=== PATIENT | male | born 1945 | race Caucasian/White ===

== ENCOUNTER 2016-04-01 12:26 | Inpatient (IN) | payer MEDICARE ==
[~2016-04-01] VITALS: Ht 167.6 cm; Wt 86.3 kg
[2016-04-07] MEDS ORDERED: PRAS10TA PO (09:45)
[2016-04-07] MEDS ORDERED: DHEA50CA PO (09:45)
[2016-04-07] MEDS ORDERED: CENTTAB PO (09:45)
[2016-04-07] MEDS ORDERED: TRAM50TA PO (09:45)
[2016-04-07] MEDS ORDERED: ASPI1TAB69 PO (09:45)
[2016-04-07] MEDS ORDERED: LIPI10TA PO (09:45)
[2016-04-07] MEDS ORDERED: ZOLO50TA PO (09:45)
[2016-04-07] MEDS ORDERED: CHRO400T5 PO (10:11)
[2016-04-12 05:57] VITALS: BP 145/87; PULSE 64; RESP 16; TEMP 97; O2SAT 96
[2016-04-12] MEDS ORDERED: LACTATED RINGER'S 1000 ML IV SCH (06:15)
[2016-04-12] MEDS ORDERED: INSULIN HUMAN REGULAR 1,000 UNITS/10 ML VIAL SQ PRN (06:15)
[2016-04-12] MEDS ORDERED: METOPROLOL TARTRATE 25 MG TAB PO PRN (06:15)
[2016-04-12] MEDS ORDERED: SODIUM CHLORIDE 0.9% IV SCH (06:15)
[2016-04-12] MEDS ORDERED: EXPAREL PERI-ARTICULAR INJECTION (TOTAL VOL. 60 ML) P-ARTICULR SCH ×2 (06:15)
[2016-04-12] MEDS ORDERED: SODIUM CHLORID 0.9% 500 ML IV SCH (06:15)
[2016-04-12] MEDS ORDERED: VANCOMYCIN 1000 MG/NS 250 ML (for <70 kg) IV SCH ×2 (06:15)
[2016-04-12] MEDS ORDERED: TRANEXAMIC ACID IV SCH (06:15)
[2016-04-12] MEDS ORDERED: MIDAZOLAM HCL 2 MG/2 ML VIAL ONE (06:49)
[2016-04-12] MEDS ORDERED: ACETAMINOPHEN 1000 MG/100 ML VIAL IV ONE (07:13)
[2016-04-12] MEDS ORDERED: HYDROmorphone HCL PF 2 MG/ML VIAL ONE (07:13)
[2016-04-12] MEDS ORDERED: GENTAMICIN SULFATE 80 MG/2 ML VIAL IRRIGATION ONE (08:20)
--- NOTE | 2016-04-12 09:00 | MH ---
cc: CORWIN GERMAN DATE OF ADMISSION: 04/12/2016 ADMITTING DIAGNOSIS: Osteoarthritis of the left knee. HISTORY OF PRESENT ILLNESS: This patient is a 71 year-old male with significant left knee pain. Investigative study shows evidence of extensive arthritis, left knee. Despite conservative care including injections, altered activity, medications, physical therapy, etc., the patient continues to be painful and now presents for surgical treatment. PAST MEDICAL HISTORY: See attached notes. SOCIAL HISTORY, FAMILY HISTORY, AND REVIEW OF SYSTEMS: See attached notes. PHYSICAL EXAMINATION: GENERAL: The patient is a 71 year-old male in moderate distress with his left knee. HEENT: Normocephalic, atraumatic. Pupils equal, round, reactive to light and accommodation. Extraocular motions intact. NECK: Supple. CHEST: Clear. HEART: Regular rate and rhythm. ABDOMEN: Soft, nontender, normoactive bowel sounds. MUSCULOSKELETAL EXAMINATION: Left knee, pain with range of motion, especially with varus and valgus stress. Crepitus with range of motion. Neurologic and vascular examination is within normal limits. IMPRESSION: Osteoarthritis, left knee. PLAN: Left total knee replacement arthroplasty. CONSENT: There are risks with surgery including infection, bleeding, loss of motion, continued pain, need for further surgery, neurologic or vascular injury, etc. The patient understands these issues and wishes to press on with surgery as outlined above. Corwin German MD [facility]/[place] /10:50 PM /8:57 AM
[2016-04-12] MEDS ORDERED: SODIUM CHLORIDE 0.9% FLUSH 5 ML FLUSH IVF PRN (09:30)
[2016-04-12] MEDS ORDERED: MORPHINE SULFATE 8 MG/ML INJ IV PUSH PRN (09:30)
[2016-04-12] MEDS ORDERED: MISCELLANEOUS NURSING INFORMATION XX PRN (09:30)
[2016-04-12] MEDS ORDERED: TEMAZEPAM 15 MG CAP PO PRN (09:30)
[2016-04-12] MEDS ORDERED: MAGNESIUM HYDROXIDE SUSP 30 ML CUP PO PRN (09:30)
[2016-04-12] MEDS ORDERED: ONDANSETRON HCL 4 MG/2 ML VIAL IVP PRN (09:30)
[2016-04-12] MEDS ORDERED: ALUMINUM/MAGNESIUM/SIMETH 30 ML CUP PO PRN (09:30)
[2016-04-12] MEDS ORDERED: Post-op Orders (for Pharmacy) MISC XX ONE (09:30)
[2016-04-12] MEDS ORDERED: NALOXONE HCL 0.4 MG/ML AMP IV PRN (09:30)
[2016-04-12] MEDS ORDERED: ACETAMINOPHEN/HYDROcodone 325 MG/10 MG TAB PO PRN (09:30)
[2016-04-12] MEDS ORDERED: BISACODYL 10 MG SUPP PR PRN (09:30)
--- NOTE | 2016-04-12 09:33 | PD.OP ---
cc: Samson Morales MD Operative Report Date of Surgery: Apr 12, 2016 Preoperative Diagnosis: Osteoarthritis left knee Postoperative Diagnosis: Same Procedure: Left total knee replacement arthroplasty, posterior stabilized Anesthesia: Gen. with block Surgeon: Samson Morales Rifle Case Repairer(s): TIM Alexandra Operation and Findings: EBL: 100 mL INDICATION: This patient presents with long-standing arthritis of the knee. Attachment record documents conservative measures. Because measures include injection of cortisone, NSAIDs, injections of Synvisc and other viscoelastic supplements, use of cane, physical therapy. He has failed all avenues of conservative care. The patient now presents for surgical treatment. NOTE: Leigh Alexandra PA-C was present for the entire surgical procedure as my cutting table operator first. In my medical opinion her skill and care was necessary for proper management of this patient. TOURNIQUET TIME: 54 minutes COMPANY: [employer] FEMUR: Size 3, posterior stabilized TIBIA: Size 3, fixed bearing PATELLA: 35 mm POLYETHYLENE INSERT: 9 mm PROCEDURE: This patient was brought the operating room and anesthetized in the supine position. The patient was positioned supine on the table. The tourniquet was placed about the thigh, and the leg was scrubbed with alcohol followed by Hibiclens followed by ChloraPrep and draped sterilely. A timeout was done, and antibiotics were given. After exsanguination the tourniquet was inflated to 250 mmHg. An anterior incision was made and a median parapatellar arthrotomy was performed. The patella was released laterally and subluxed allowing freehand cut of the patella which was then sized. A metal cap was placed over the exposed patellar surface for protection. A ems helicopter pilot hole was placed in the distal femur allowing a 7 valgus cut removing 10 mm from the distal femur. Anterior posterior and chamfer cuts were made. The posterior stabilize osteotomy was made. The attention was directed to the tibia. Retractors were positioned. The external alignment guide was used allowing the lateral tibia were used as referencing guide and cut. This is sized properly. Trial reduction showed that the insert fit nicely. The patient had range of motion extension 0 flexion 125. A medial release was not necessary. The bony surfaces prepared. On the back table 2 packets of methylmethacrylate were mixed. The components were cemented. Excess cement was removed. The tourniquet let down and hemostasis was controlled. The final plastic insert was inserted. Range of motion was the same as previously noted. A drain was brought through a separate stab incision. The arthrotomy was repaired with interrupted #1 Vicryl suture, subcutaneous tissue 2-0 Vicryl suture and skin with metallic ronal A sterile dressing was applied. Sponge counts, needle counts and instrument counts were all correct. The patient tolerated procedure well and was taken to recovery in satisfactory condition. FINDINGS: Severe osteoarthritis of the medial compartment with bone loss and varus deformity. Mild arthritis in the lateral compartment and retropatellar compartment. Overall fit was excellent. No comp location was appreciated we used local anesthesia for a additional local block Samson Morales MD Apr 12, 2016 09:33
[2016-04-12] MEDS ORDERED: XARE10TA PO (09:38)
[2016-04-12] MEDS ORDERED: HYDR-3583 PO (09:38)
[2016-04-12] MEDS ORDERED: fentaNYL CITRATE 250 MCG/5 ML AMP ONE (09:44)
[2016-04-12] MEDS: *morphine SULFATE 8 MG/ML PERIprocedure ONLY ONE ×3 (10:00→10:17)
[2016-04-12] MEDS: LACTATED RINGER'S 1000 ML INJ 1,000 ML IV SCH ×2 (10:00→20:06)
[2016-04-12] MEDS ORDERED: DO NOT ADM ANY ANTICOAGULANT DRUGS XX PRN (10:00)
[2016-04-12] MEDS ORDERED: NEOSTIGMINE 3 MG/3 ML SYR IV ONE (10:04)
[2016-04-12] MEDS ORDERED: ONDANSETRON HCL 4 MG/2 ML VIAL IV PUSH ONE (10:04)
[2016-04-12] MEDS ORDERED: WALKER WHEELS/F1 MIS (10:04)
[2016-04-12] MEDS ORDERED: ePHEDrine/NS 50 MG/5 ML SYR IV ONE (10:04)
[2016-04-12] MEDS ORDERED: PROPOFOL 200 MG/20 ML AMP IV ONE (10:04)
[2016-04-12] MEDS ORDERED: CPMMACHINE (10:06)
--- NOTE | 2016-04-12 10:08 | HHI.FF ---
Face to Face Verification Diagnosis: (1) Left knee pain (2) Osteoarthritis of left knee Physical Therapy Gait training, Safety evaluation, Transfer training, bed to chair Knee: Total knee, Protocol: Left, Full weight bearing Canvas Knee Splint: When in bed & 2 pillows btw thighs Additional Instructions PT 5 days/wk for 2 weeks. WBAT LLE. TKA protocol. CPM bid as tolerated, 0-70 w goal of 100 flexion. Walker to assist w gait. CKS in bed for 2-3 weeks postop Nursing RN Days per Week: 3 x Week(s): 1 Dressing Changes: Do not change dressing Additional Instructions Vitals assessment. Dressing assessment - do not change unless saturated or erythema. I have seen patient Portillo Alvarez Omar, on 04/12/16. My clinical findings support the need for the requested home health care services because: Limited ability to care for self High risk of falls I certify that my clinical findings support that this patient is homebound because: Post-op weakness Unsteady gait/balance Leigh Alexandra Apr 12, 2016 10:08
--- NOTE | 2016-04-12 10:15 | HHI.DS ---
Discharge Summary Admission Date Apr 12, 2016 at 05:42 Discharge Date: Apr 14, 2016 Admitting Diagnosis see below Diagnosis: (1) Left knee pain Diagnosis: Principal (2) Osteoarthritis of left knee Diagnosis: Principal Procedures Left total knee arthroplasty Brief History This is a 71 year old male patient with a long history of left knee pain. When he began struggling walking short distances he sought out medical treatment. Imaging studies were performed showing significant medial knee arthritis. Conservative measures were pursued including medications and injections. He continued to decline so surgical treatment was recommended and he elected to move forward. Hospital Course Surgical treatment was performed on the day of admission without complication. He recovered well in PACU and was transferred to the orthopaedic floor. Pain was controlled with IV and oral medications. DVT prophylaxis was initiated pod# 1. He was compliant with physical therapy and all TKA precautions. After 2 days he was found to be stable and discharged home with home health care with instruction to continue his therapy and to pursue a high fiber diet. Pt Condition on Discharge: Stable Discharge Disposition: Disch w/ Home Health Serv Discharge Instructions Diet Instructions: As Tolerated, No Restrictions, High Fiber Diet Activities You Can Perform: Weight Bearing as Mo Additional Activity Instruc.: TKA precautions New Medications: CPM-Continuous Passive Motion Machine (CPM-Continuous Passive Motion Machine) 1 Ea Device 1 EA .ROUTE DIRECTED #1 Ref 0 EA Walker with Front Wheels (Walker with Front Wheels) 1 Mis Mis 1 EA .ROUTE DIRECTED #1 Ref 0 EA Hydrocodone-Acetaminophen (Hydrocodone-Acetaminophen) 10-325 mg Tab 1 TAB PO Q4H PRN PAIN LESS THAN 5 ON SCALE #50 TAB Rivaroxaban (Xarelto) 10 Mg Tab 10 MG PO Q24H Prevent Blood Clot #15 TAB Continued Medications: Aspirin (Aspirin) 81 Mg Tabdr 81 MG PO DAILY TAB Atorvastatin (Lipitor) 10 Mg Tab 10 MG PO HS Cholesterol Management #30 Ref 0 TAB Chromium (Chromium) 400 Mcg Tab 800 MG PO DAILY Multiple Vitamins W/ Minerals (Centrum Silver) 1 Tab 1 TAB PO DAILY Nutritional Supplement Ref 0 TAB Prasterone (Dhea) 50 Mg Cap MG PO DAILY Prasugrel (Effient) 10 Mg Tab 10 MG PO DAILY Blood Clot Prevention #30 Ref 0 TAB Sertraline (Zoloft) 50 Mg Tab 50 MG PO DAILY #30 Ref 0 TAB Tramadol (Tramadol) 50 Mg Tab 50 MG PO Q6H PRN PAIN Ref 0 TAB Leigh Alexandra Apr 12, 2016 10:15
[2016-04-12] MEDS: MORPHINE SULFATE 30 MG/30 ML PCA IV SCH ×2 (10:29→16:22)
--- NOTE | 2016-04-12 10:33 | RADRPT ---
EXAM DATE/TIME: 04/12/2016 10:08 [facility] COMPARISON: No previous studies available for comparison. INDICATIONS : Post op left knee surgery. MEDICAL HISTORY : None. SURGICAL HISTORY : None. ENCOUNTER: Initial ACUITY: 1 day PAIN SCORE: 5/10 LOCATION: Left knee FINDINGS: Two view examination of the left knee demonstrates left-sided total knee joint replacement. Drain in the soft tissues. Skin ronal anteriorly. CONCLUSION: 1. Postoperative left total knee joint replacement. No complications identified. Hector Roth MD on April 12, 2016 at 10:31 Board Certified Radiologist. This report was verified electronically.
[2016-04-12] MEDS: *HYDROmorphone PF 1 MG VIAL PERIprocedural Use ONLY ONE (10:37)
[2016-04-12] MEDS ORDERED: BUPIVACAINE HCL PF 0.5% 30 ML VIAL NB ONE (11:59)
[2016-04-12 12:00] VITALS: BP 134/73; PULSE 102; RESP 18; TEMP 97.3; O2SAT 95
[2016-04-12] MEDS: PCA - TOTAL MG MORPHINE DELIVERED PER SHIFT SCH ×2 (13:59→20:06)
[2016-04-12 16:00] VITALS: BP 115/74; PULSE 92; RESP 18; TEMP 97.8; O2SAT 95
[2016-04-12 16:32] VITALS: O2SAT 98
[2016-04-12 20:00] VITALS: BP 130/74; PULSE 82; RESP 16; TEMP 96.4; O2SAT 94
[2016-04-12] MEDS: ATORVASTATIN 10 MG TAB PO SCH (20:01)
[2016-04-12] MEDS: SODIUM CHLORIDE 0.9% FLUSH 5 ML FLUSH IVF SCH (20:02)
--- NOTE | 2016-04-12 23:41 | EKG ---
Date Performed: 04/12/2016 Time Performed: 06:18:02 PTAGE: 71 years EKG: Sinus rhythm WITH OCCASIONAL ECTOPIC PREMATURE COMPLEXES NONSPECIFIC T-WAVE ABNORMALITY BORDERLINE ECG NO PREVIOUS TRACING DOCTOR: Rosy Dodge Interpretating Date/Time 04/12/2016 23:39:27
[2016-04-13] VITALS (7 sets, daily range): BP systolic 126–147; BP diastolic 65–78; PULSE 83–94; RESP 16–20; TEMP 95.4–99.8; O2SAT 92–97
[2016-04-13] MEDS: PCA - TOTAL MG MORPHINE DELIVERED PER SHIFT SCH ×2 (04:39→12:14)
[2016-04-13] MEDS: POVIDONE IODINE 7.5% SCRUB 118 ML BOTTLE TOP SCH (04:39)
[2016-04-13 08:13] LABS: HEMATOCRIT 38.9 % (39.0-51.0); REVIEW FLAG FINAL
[2016-04-13] MEDS: RIVAROXABAN 10 MG TAB PO SCH (08:21)
[2016-04-13] MEDS: SERTRALINE HCL 50 MG TAB PO SCH (08:21)
[2016-04-13] MEDS: SODIUM CHLORIDE 0.9% FLUSH 5 ML FLUSH IVF SCH ×2 (08:21→20:55)
[2016-04-13] MEDS ORDERED: PRASUGREL 10 MG TAB PO SCH (09:00)
[2016-04-13] MEDS ORDERED: CHROMIUM PO SCH (09:00)
[2016-04-13] MEDS: LACTATED RINGER'S 1000 ML INJ 1,000 ML IV SCH ×2 (10:17→20:55)
[2016-04-13] MEDS: ACETAMINOPHEN/HYDROcodone 325 MG/10 MG TAB PO PRN ×2 (11:58→18:14)
--- NOTE | 2016-04-13 12:34 | PD.ORT.PN ---
Subjective Subjective Remarks Moderate left knee pain. has history of restless leg syndrome so some aching both legs. No complaints overnight such as CP, SOB, fever. Urinating but no BM. Objective Vitals Vital Signs Date Time Temp Pulse Resp B/P Pulse Ox O2 Delivery O2 Flow Rate FiO2 04/13/16 08:15 Room Air 04/13/16 08:00 95.4 90 20 140/72 94 04/13/16 04:00 96.8 87 16 133/73 93 04/13/16 00:54 97 Nasal Cannula 2.00 04/13/16 00:00 97.2 87 17 126/65 93 04/12/16 20:00 96.4 82 16 130/74 94 04/12/16 16:32 98 Nasal Cannula 2.00 04/12/16 16:00 97.8 92 18 115/74 95 I/O 04/12/16 04/12/16 04/12/16 04/13/16 04/13/16 04/13/16 07:00 15:00 23:00 07:00 15:00 23:00 Intake Total 2351 ml 793 ml 1121 ml 569 ml Output Total 580 ml 1140 ml 1050 ml 800 ml Balance 1771 ml -347 ml 71 ml -231 ml Intake Oral 240 ml 360 ml 360 ml IV Total 811 ml 433 ml 761 ml 569 ml Other 1300 ml Output Urine Total 500 ml 850 ml 850 ml 800 ml Drainage Total 30 ml 290 ml 200 ml Estimated Blood Loss 50 ml # Bowel Movements 0 0 Result Diagram: 04/13/16 0641 Procedures Left total knee arthroplasty Objective Remarks Sitting up in chair, at bedside, NAD LLE Dressing c/d/i, drain in place with 200cc, no erythema, moderate warmth thigh and calf supple, neg homans +motor at, +sens, +nvi Assessment & Plan Ortho Post Op Day #: 1 Problem List: (1) Left knee pain (2) Osteoarthritis of left knee Assessment and Plan pod#1 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 Ok to decrease settings on SCDs to alleviate some cramping left leg. Xarelto 10mg qd. Will likely restart Effient in 48 hours. Continue drain until tomorrow am then d/c. Hold dressing changes unless saturated. PT - WBAT LLE. TKA protocol. CPM D/C planning, [facility] tomorrow or monday. F2F written. Leigh Alexandra Apr 13, 2016 12:34
[2016-04-13] MEDS: DOCUSATE SODIUM 100 MG CAP PO SCH (20:48)
[2016-04-13] MEDS: MULTIVITAMINS/MINERALS THERAPEUTIC TAB PO SCH (20:49)
[2016-04-13] MEDS: ATORVASTATIN 10 MG TAB PO SCH (20:49)
[2016-04-14 00:12] VITALS: BP 151/71; PULSE 85; RESP 20; TEMP 98.8; O2SAT 94
[2016-04-14] MEDS: POVIDONE IODINE 7.5% SCRUB 118 ML BOTTLE TOP SCH (03:44)
[2016-04-14] MEDS: ACETAMINOPHEN/HYDROcodone 325 MG/10 MG TAB PO PRN ×2 (05:40→11:41)
--- NOTE | 2016-04-14 07:39 | HHI.DCPOC ---
Discharge Care Plan Diagnosis: (1) Left knee pain (2) Osteoarthritis of left knee Your Health Problems Are: Incision/Drains Goals to Promote Your Health * To prevent worsening of your condition and complications * To maintain your health at the optimal level Directions to Meet Your Goals Take your medications as prescribed Follow your dietary instruction Follow activity as directed Keep your appointments as scheduled Take your immunizations and boosters as scheduled If your symptoms worsen call your PCP, if no PCP go to Urgent Care Center or Emergency Room Smoking is Dangerous to Your Health. Avoid second hand smoke Call the 24-hour hour crisis hotline for domestic abuse at Leigh Alexandra Apr 14, 2016 07:39
--- NOTE | 2016-04-14 07:44 | PD.ORT.PN ---
Subjective Subjective Remarks Moderate left knee pain but improved today compared to yesterday. Struggling with hiccups this morning. No BM yet but is actively passing gas. Continues to urinate well. Good appetite. No new complaints overnight such as CP, SOB, fever. Considering D/C home today. Objective Vitals Vital Signs Date Time Temp Pulse Resp B/P Pulse Ox O2 Delivery O2 Flow Rate FiO2 04/14/16 00:12 98.8 85 20 151/71 94 04/13/16 20:25 99.8 93 20 144/77 92 04/13/16 18:16 Nasal Cannula 2.00 04/13/16 16:00 97.9 83 20 147/77 94 04/13/16 12:00 97.1 94 20 133/78 94 04/13/16 08:15 Room Air 04/13/16 08:00 95.4 90 20 140/72 94 I/O 04/13/16 04/13/16 04/13/16 04/14/16 04/14/16 04/14/16 07:00 15:00 23:00 07:00 15:00 23:00 Intake Total 1121 ml 1049 ml 480 ml 480 ml Output Total 1050 ml 1165 ml 65 ml 750 ml Balance 71 ml -116 ml 415 ml -270 ml Intake Oral 360 ml 480 ml 480 ml 480 ml IV Total 761 ml 569 ml Output Urine Total 850 ml 1035 ml 750 ml Drainage Total 200 ml 130 ml 65 ml # Voids 3 4 # Bowel Movements 0 0 0 Result Diagram: 04/13/16 0641 Procedures Left total knee arthroplasty Objective Remarks Sitting up in bed, VSS, NAD LLE Dressing c/d/i, drain removed and site clean w moderate SS drainage at bandage lateral, no erythema, mild swelling, thigh and calf supple, neg homans +motor at, +sens, +nvi Assessment & Plan Ortho Post Op Day #: 2 Problem List: (1) Left knee pain (2) Osteoarthritis of left knee Assessment and Plan pod#2 s/p L TKA Did better last night. Considering d/c home today. If he does well w PT this afternoon, okay to d/c home w [facility] this afternoon. Leg cramping better after SCDs adjusted. Colace for BM today. Xarelto 10mg qd. Plan on returning to Effient tomorrow. Hold dressing changes unless saturated. PT - WBAT LLE. TKA protocol. CPM F/U in 2 weeks as scheduled. F2F written. Leigh Alexandra Apr 14, 2016 07:44
[2016-04-14] MEDS: MULTIVITAMINS/MINERALS THERAPEUTIC TAB PO SCH (07:51)
[2016-04-14] MEDS: SERTRALINE HCL 50 MG TAB PO SCH (07:51)
[2016-04-14] MEDS: RIVAROXABAN 10 MG TAB PO SCH (07:51)
[2016-04-14] MEDS: DOCUSATE SODIUM 100 MG CAP PO SCH (07:52)
[2016-04-14] MEDS: SODIUM CHLORIDE 0.9% FLUSH 5 ML FLUSH IVF SCH (07:52)
[2016-04-14 08:00] VITALS: BP 149/78; PULSE 76; RESP 20; TEMP 96.2; O2SAT 96
[2016-04-14] MEDS ORDERED: PRASUGREL 10 MG TAB PO SCH (09:00)
[2016-04-14] MEDS: LACTATED RINGER'S 1000 ML INJ 1,000 ML IV SCH (11:23)
== END 2016-04-14 13:19 | disposition home health service (06) | DRG 470 ==
LOC: HSDI 04-12 05:42 → N06A 04-12 12:09
PROVIDERS: ADMIT Orthopaedic Surgery Orthopaedic Surgery of the Spine; ATTEND Orthopaedic Surgery Orthopaedic Surgery of the Spine
PROC: 3E0T3CZ (ICD-10-PCS; 2016-04-12)
PROC: 0SRD0J9 Replacement of Left Knee Joint with Synthetic Substitute, Cemented, Open Approach (ICD-10-PCS; principal; 2016-04-12 07:19)
DX: M17.12 Unilateral primary osteoarthritis, left knee (principal); G25.81 Restless legs syndrome; R06.6 Hiccough
CPT/HCPCS: 73560; 85014; 85018; 86850; 86900; 86901; 86920; 93005; 94150; C1776; C9290; J0131; J0690; J1170; J1580; J2250; J2270; J2405; J2710; J3010; J3370; J7050; J7120; L1830

== ENCOUNTER 2016-08-08 12:39 | Inpatient (IN) | payer MEDICARE, OTHER ==
[~2016-08-08] VITALS: Ht 167.6 cm; Wt 120.9 kg
[~2016-08-08 12:39] MED LIST: ASPI1TAB69 PO; CENTTAB PO; CHRO400T5 PO; DHEA50CA PO; LIPI10TA PO; PRAS10TA PO; ZOLO50TA PO
[2016-08-08] MEDS ORDERED: OMEP20TA PO (13:43)
--- NOTE | 2016-08-08 19:27 | MH ---
cc: CORWIN GERMAN DATE OF ADMISSION 08/09/2016 ADMISSION DIAGNOSIS Osteoarthritis of the right knee. HISTORY OF THE PRESENT ILLNESS This patient is a 71-year-old male who is approximately 4 months status post left total knee replacement arthroplasty. He has done very well. The patient had bilateral severe osteoarthritis. The patient had conservative care of his right knee including injections of cortisone, pain medications, use of nonsteroidal anti-inflammatory medications and use of a cane. He has had physical therapy for both of his knees. He is now for months after left total knee replacement and presents now for staged right total knee replacement arthroplasty. PAST MEDICAL HISTORY, SOCIAL HISTORY, FAMILY HISTORY AND REVIEW OF SYMPTOMS See attached notes. PHYSICAL EXAMINATION VITAL SIGNS: 5 feet 6, 170 pounds, BMI 27.4. Blood pressure 122/70. HEENT: Normocephalic, atraumatic. Pupils equal, round, reactive to light and accommodation. Extraocular motions intact. NECK: Supple. CHEST: Clear. HEART: Regular rate and rhythm. ABDOMEN: Soft and nontender. Normoactive bowel sounds. MUSCULOSKELETAL: Thoracolumbar spine restricted motion, pain with range of motion. Lower extremity right knee mild varus deformity. Crepitus with range of motion, loss of range of motion with flexion 125 degrees. Extension -2. Left knee has a well-healed incision. Excellent range of motion. No pain. Mild swelling. NEUROLOGIC: Examination within normal limits. VASCULAR: Examination within normal limits. IMPRESSION Osteoarthritis of the right knee. PLAN Right total knee replacement arthroplasty, posterior stabilized. CONSENT The risks for surgery including infection, bleeding, loss of motion, continued pain, need for further surgery, neurologic and vascular injury. The patient understands these issues and wishes to press on with surgery as outlined above. MD TITUS Rivera/KK /6:06 PM /7:15 PM
[2016-08-09] MEDS ORDERED: DHEA50CA PO (08:19)
[2016-08-09 08:21] VITALS: BP 160/82; PULSE 61; RESP 16; TEMP 98.5; O2SAT 98
[2016-08-09] MEDS ORDERED: INSULIN HUMAN REGULAR 1,000 UNITS/10 ML VIAL SQ PRN (08:30)
[2016-08-09] MEDS ORDERED: LACTATED RINGER'S 1000 ML IV PRN (08:30)
[2016-08-09] MEDS ORDERED: SODIUM CHLORID 0.9% 500 ML IV PRN (08:30)
[2016-08-09] MEDS ORDERED: CHLORHEXIDINE GLUCONATE 2 % 1 PACK (2 CLOTHS) TOPICAL PRN (08:30)
[2016-08-09] MEDS ORDERED: VANCOMYCIN 1000 MG/NS 250 ML (for <70 kg) IV SCH ×2 (08:30)
[2016-08-09] MEDS ORDERED: POVIDONE IODINE 5% (ANTISEPSIS KIT) 4 APPLICATIONS EACH NARE PRN (08:30)
[2016-08-09] MEDS ORDERED: METOPROLOL TARTRATE 25 MG TAB PO PRN (08:30)
[2016-08-09] MEDS ORDERED: POVIDONE IODINE 7.5% SCRUB 118 ML BOTTLE TOPICAL SCH (08:30)
[2016-08-09] MEDS ORDERED: SODIUM CHLORIDE 0.9% IV SCH ×2 (09:00→14:15)
[2016-08-09] MEDS ORDERED: TRANEXAMIC ACID IV SCH ×2 (09:00→14:15)
[2016-08-09] MEDS ORDERED: EXPAREL PERI-ARTICULAR INJECTION (TOTAL VOL. 60 ML) P-ARTICULR SCH ×2 (09:00)
[2016-08-09] MEDS ORDERED: GENTAMICIN SULFATE 80 MG/2 ML VIAL ONE (11:03)
[2016-08-09] MEDS ORDERED: ceFAZolin INJ 1,000 MG VIAL ONE (11:04)
[2016-08-09] MEDS ORDERED: BUPIVACAINE LIPOSOME PF 1.3% 20 ML VIAL ONE (11:18)
[2016-08-09] MEDS ORDERED: ceFAZolin 2 GM PREMIX 50 ML IV SCH (13:00)
[2016-08-09] MEDS ORDERED: PROPOFOL 200 MG/20 ML AMP IV ONE (13:40)
[2016-08-09] MEDS ORDERED: ePHEDrine/NS 25 MG/5 ML SYR IV ONE (13:41)
[2016-08-09] MEDS ORDERED: ONDANSETRON HCL 4 MG/2 ML VIAL IV PUSH ONE (13:41)
[2016-08-09] MEDS ORDERED: LACTATED RINGER'S 1000 ML INJ 2,000 ML IV ONE (13:41)
[2016-08-09] MEDS ORDERED: Post-op Orders (for Pharmacy) MISC XX ONE (14:15)
[2016-08-09] MEDS ORDERED: TEMAZEPAM 15 MG CAP PO PRN (14:15)
[2016-08-09] MEDS ORDERED: MISCELLANEOUS PHARMACY INFORMATION XX ONE (14:15)
[2016-08-09] MEDS ORDERED: SODIUM CHLORIDE 0.9% FLUSH 5 ML FLUSH IVF PRN (14:15)
[2016-08-09] MEDS ORDERED: MISCELLANEOUS NURSING INFORMATION XX PRN (14:15)
[2016-08-09] MEDS ORDERED: MORPHINE SULFATE 8 MG/ML INJ IM PRN (14:15)
[2016-08-09] MEDS ORDERED: MORPHINE SULFATE 30 MG/30 ML PCA IV SCH (14:15)
[2016-08-09] MEDS ORDERED: NALOXONE HCL 0.4 MG/ML AMP IV PRN (14:15)
--- NOTE | 2016-08-09 14:19 | PD.OP ---
cc: Samson Morales MD Operative Report Date of Surgery: August 09, 2016 Preoperative Diagnosis: Osteoarthritis, right knee Postoperative Diagnosis: Same Procedure: Right total knee replacement arthroplasty, anterior Anesthesia: Gen. with regional block Surgeon: Samson Morales Wirer Passenger Car(s): TIM Penaloza Operation and Findings: EBL: 100 cc INDICATION: This patient presents with long-standing arthritis of the knee. Attachment record documents conservative measures. The patient now presents for surgical treatment. NOTE: Sugey Penaloza PA-C was present for the entire surgical procedure as my first aid director. In my medical opinion her skill and care was necessary for proper management of this patient. TOURNIQUET TIME: 57 minutes COMPANY: [employer] FEMUR: Size 3, posterior stabilized TIBIA: Size 3, fixed bearing PATELLA: 35 mm POLYETHYLENE INSERT: 9 mm PROCEDURE: This patient was brought the operating room and anesthetized in the supine position. The patient was positioned supine on the table. The tourniquet was placed about the thigh, and the leg was scrubbed with alcohol followed by Hibiclens followed by ChloraPrep and draped sterilely. A timeout was done, and antibiotics were given. After exsanguination the tourniquet was inflated to 250 mmHg. An anterior incision was made and a median parapatellar arthrotomy was performed. The patella was released laterally and subluxed allowing freehand cut of the patella which was then sized. A metal cap was placed over the exposed patellar surface for protection. A airplane pilot crop dusting hole was placed in the distal femur allowing a 7 valgus cut removing 10 mm from the distal femur. Anterior posterior and chamfer cuts were made. The posterior stabilize osteotomy was made. The attention was directed to the tibia. Retractors were positioned. The external alignment guide was used allowing the lateral tibia to be used as referencing guide and cut utilizing an oscillating saw taking care to avoid any injury to the surrounding soft tissues. This was sized properly. Trial reduction showed that the insert fit nicely. The patient had range of motion extension 0 flexion 125. A medial release was necessary. The bony surfaces prepared. On the back table 2 packets of methylmethacrylate were mixed. The components were cemented. Excess cement was removed. The tourniquet let down and hemostasis was controlled. The final plastic insert was inserted. Range of motion was the same as previously noted. A drain was brought through a separate stab incision. The arthrotomy was repaired with interrupted #1 Vicryl suture, subcutaneous tissue 2-0 Vicryl suture and skin with metallic ronal A sterile dressing was applied. Sponge counts, needle counts and instrument counts were all correct. The patient tolerated procedure well and was taken to recovery in satisfactory condition. FINDINGS: There was severe arthritis especially of the medial compartment. Erosion of tibial plateau and distal femoral bone stock in that compartment was consistent with subchondral cystic erosion and collapse. A shunt had a significant varus deformity which was corrected through the osteotomies of the distal femur and proximal tibia. The final alignment appeared excellent. Samson Morales MD August 09, 2016 14:19
[2016-08-09] MEDS ORDERED: OXYC1TAB63 PO (14:21)
[2016-08-09] MEDS ORDERED: XARE10TA PO (14:21)
[2016-08-09] MEDS: LACTATED RINGER'S 1000 ML INJ 1,000 ML IV SCH ×2 (14:50→19:28)
[2016-08-09] MEDS ORDERED: MIDAZOLAM HCL 2 MG/2 ML VIAL ONE (14:53)
[2016-08-09] MEDS ORDERED: fentaNYL CITRATE 250 MCG/5 ML AMP ONE (14:53)
[2016-08-09] MEDS ORDERED: *morphine SULFATE 8 MG/ML PERIprocedure ONLY ONE ×3 (14:55→16:34)
[2016-08-09] MEDS ORDERED: DO NOT ADM ANY ANTICOAGULANT DRUGS PRN (15:15)
--- NOTE | 2016-08-09 15:27 | RADRPT ---
EXAM DATE/TIME: 08/09/2016 15:00 [facility] COMPARISON: No previous studies available for comparison. INDICATIONS : Post op right knee replacement MEDICAL HISTORY : None. SURGICAL HISTORY : None. ENCOUNTER: Initial ACUITY: 1 day PAIN SCORE: 10/10 LOCATION: Right knee FINDINGS: 2 views of the knee show a total knee prosthesis in good position. No fracture or dislocation is obse rved. Soft tissue swelling is noted. CONCLUSION: Total knee arthroplasty in good position. Rock Colin Jr., MD on August 09, 2016 at 15:25 Board Certified Radiologist. This report was verified electronically.
[2016-08-09 18:12] VITALS: BP 144/97; PULSE 87; RESP 18; TEMP 98.5; O2SAT 95
[2016-08-09] MEDS: SENNOSIDES 8.6 MG TAB PO SCH (19:28)
[2016-08-09] MEDS: MAGNESIUM HYDROXIDE SUSP 30 ML CUP PO SCH (19:28)
[2016-08-09] MEDS: SODIUM CHLORIDE 0.9% FLUSH 5 ML FLUSH IVF SCH (19:28)
[2016-08-09] MEDS: ATORVASTATIN 10 MG TAB PO SCH (19:28)
[2016-08-09 19:39] VITALS: O2SAT 95
[2016-08-09 20:10] VITALS: BP 136/64; PULSE 78; RESP 17; TEMP 97.6; O2SAT 97
[2016-08-09] MEDS: PCA - TOTAL MG MORPHINE DELIVERED PER SHIFT SCH (22:00)
[2016-08-10] VITALS (7 sets, daily range): BP systolic 137–156; BP diastolic 69–77; PULSE 71–88; RESP 17–19; TEMP 96.3–98.6; O2SAT 93–97
[2016-08-10] MEDS: PCA - TOTAL MG MORPHINE DELIVERED PER SHIFT SCH ×3 (06:00→19:38)
[2016-08-10 07:08] LABS: HEMATOCRIT 36.7 % (39.0-51.0); REVIEW FLAG FINAL
[2016-08-10] MEDS ORDERED: CPMMACHINE (08:59)
[2016-08-10] MEDS ORDERED: PRASTERONE PO SCH (09:00)
[2016-08-10] MEDS: SODIUM CHLORIDE 0.9% FLUSH 5 ML FLUSH IVF SCH ×2 (09:00→19:35)
[2016-08-10] MEDS ORDERED: [UNRECOGNIZED DRUG - OTHER] PO SCH (09:00)
[2016-08-10] MEDS: SERTRALINE HCL 50 MG TAB PO SCH (09:00)
[2016-08-10] MEDS: MAGNESIUM HYDROXIDE SUSP 30 ML CUP PO SCH ×2 (09:16→19:35)
[2016-08-10] MEDS: PANTOPRAZOLE SOD 20 MG DELAYED RELEASE TAB PO SCH (09:17)
[2016-08-10] MEDS: RIVAROXABAN 10 MG TAB PO SCH (12:49)
--- NOTE | 2016-08-10 13:28 | HHI.FF ---
Face to Face Verification Diagnosis: (1) Primary osteoarthritis of right knee Physical Therapy Gait training, Safety evaluation, Transfer training, bed to chair Knee: Total knee, Protocol: Right, Full weight bearing Right LE Weight Bearing: WB as tolerated Additional Instructions PT 4-5 days/week for 10-14 days. WBAT RLE. R TKA protocol. CPM bid as tolerated, 0-70 with goal of 100. Nursing RN Days per Week: 3 x Week(s): 1 Dressing Changes: Do not change dressing Additional Instructions Vitals assessment, dressing assessment - do not changes unless saturated. I have seen patient Portillo Alvarez Omar, on 08/10/16. My clinical findings support the need for the requested home health care services because: Limited ability to care for self High risk of falls I certify that my clinical findings support that this patient is homebound because: Post-op weakness Unsteady gait/balance Leigh Alexandra August 10, 2016 13:28
--- NOTE | 2016-08-10 13:31 | PD.ORT.PN ---
Subjective Subjective Remarks Doing well. Moderate distal thigh pain at knee. No radiating leg pain to calf. Feels he is 'doing just as well as he did with his other knee'. No complaints or concerns otherwise. was a little frustrated as she did not get any kind of update call from PACU. Apparently there was a delay in getting up to the floor. Pt notes no other concerns, no CP or SOB. Objective Vitals Vital Signs Date Time Temp Pulse Resp B/P Pulse Ox O2 Delivery O2 Flow Rate FiO2 08/10/16 12:00 98.6 71 18 156/70 96 08/10/16 11:06 97 21 08/10/16 10:08 20 08/10/16 10:03 18 08/10/16 08:00 98.1 78 18 147/75 96 08/10/16 06:00 17 08/10/16 04:10 96.3 86 17 139/77 96 08/10/16 00:10 96.9 82 17 137/71 95 08/09/16 22:00 17 08/09/16 20:10 97.6 78 17 136/64 97 08/09/16 19:39 95 Nasal Cannula 3.00 08/09/16 19:26 97 Nasal Cannula 2.00 08/09/16 18:12 98.5 87 18 144/97 95 08/09/16 14:46 97.6 79 14 142/86 99 Nasal Cannula 3 I/O 08/09/16 08/09/16 08/09/16 08/10/16 08/10/16 08/10/16 07:00 15:00 23:00 07:00 15:00 23:00 Intake Total 1300 ml 866 ml 892 ml 481 ml Output Total 375 ml 810 ml 865 ml 100 ml Balance 925 ml 56 ml 27 ml 381 ml Intake Oral 240 ml 120 ml IV Total 626 ml 772 ml 481 ml Other 1300 ml Output Urine Total 275 ml 550 ml 725 ml Drainage Total 260 ml 140 ml 100 ml Estimated Blood Loss 100 ml # Bowel Movements 0 0 Result Diagram: 08/10/16 0604 Imaging Last 24 hours Impressions Knee X-Ray 08/09/16 1413 Signed Impressions: Service Date/Time: Tuesday, August 09, 2016 15:00 - CONCLUSION: Total knee arthroplasty in good position. 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 Xarelto 10mg qd Will d/c drain tomorrow morning. Output last 24 about 250cc per RN. Ok to redress drain site but hold dressing changes otherwise. WBAT RLE. TKA protocol. CPM bid as tolerated. D/C planning, [facility] tomorrow. F2F written. Has all dme already. Leigh Alexandra August 10, 2016 13:31
[2016-08-10] MEDS: oxyCODONE/ACETAMINOPHEN 5 MG/325 MG TAB PO PRN ×3 (13:34→21:43)
[2016-08-10] MEDS: LACTATED RINGER'S 1000 ML INJ 1,000 ML IV SCH ×2 (15:13→19:38)
[2016-08-10] MEDS: SENNOSIDES 8.6 MG TAB PO SCH (19:35)
[2016-08-10] MEDS: ATORVASTATIN 10 MG TAB PO SCH (19:35)
[2016-08-11 00:18] VITALS: BP 139/67; PULSE 79; RESP 18; TEMP 98.2; O2SAT 96
[2016-08-11] MEDS: oxyCODONE/ACETAMINOPHEN 5 MG/325 MG TAB PO PRN ×3 (01:57→10:47)
[2016-08-11] MEDS: PCA - TOTAL MG MORPHINE DELIVERED PER SHIFT SCH ×2 (02:17→08:18)
[2016-08-11 08:00] VITALS: BP 148/69; PULSE 70; RESP 19; TEMP 96.7; O2SAT 97
[2016-08-11] MEDS: PANTOPRAZOLE SOD 20 MG DELAYED RELEASE TAB PO SCH (08:16)
[2016-08-11] MEDS: SERTRALINE HCL 50 MG TAB PO SCH (08:16)
[2016-08-11] MEDS: MAGNESIUM HYDROXIDE SUSP 30 ML CUP PO SCH (08:17)
[2016-08-11] MEDS: SODIUM CHLORIDE 0.9% FLUSH 5 ML FLUSH IVF SCH (08:17)
[2016-08-11] MEDS: LACTATED RINGER'S 1000 ML INJ 1,000 ML IV SCH (08:19)
--- NOTE | 2016-08-11 09:12 | HHI.DCPOC ---
Discharge Care Plan Diagnosis: (1) Primary osteoarthritis of right knee Your Health Problems Are: Incision/Drains Swelling Goals to Promote Your Health * To prevent worsening of your condition and complications * To maintain your health at the optimal level Directions to Meet Your Goals Take your medications as prescribed Follow your dietary instruction Follow activity as directed Keep your appointments as scheduled Take your immunizations and boosters as scheduled If your symptoms worsen call your PCP, if no PCP go to Urgent Care Center or Emergency Room Smoking is Dangerous to Your Health. Avoid second hand smoke Call the 24-hour hour crisis hotline for domestic abuse at Leigh Alexandra August 11, 2016 09:12
--- NOTE | 2016-08-11 09:15 | HHI.DS ---
Discharge Summary Admission Date August 09, 2016 at 07:34 Discharge Date: August 11, 2016 Admitting Diagnosis see below Diagnosis: (1) Primary osteoarthritis of right knee Diagnosis: Principal Procedures Right total knee arthroplasty Brief History This is a 71 year old male patient with a long history of bilateral knee pain. He had sought out medical evaluation which showed moderate to severe arthritis both knees. Conservative measures were pursued including injections and medications. He recently underwent left total knee april of 2016. He did very well. He continued to have significant right knee pain and elected to move forward with staged right total knee arthroplasty. CBC/BMP: 08/10/16 0604 Significant Findings Laboratory Tests Test 08/10/16 06:04 Hemoglobin 12.2 GM/DL (13.0-17.0) Hematocrit 36.7 % (39.0-51.0) PE at Discharge Sitting up in chair, NAD VSS at bedside RLE Knee dressing c/d/i, drain in place, mild swelling, no erythema +motor at, +sens, +nvi neg [facility] Course Surgical treatment was performed on the day of admission without complication. He recovered well in PACU and was transferred to the orthopaedic floor. Pain was controlled with IV and oral medications. DVT prophylaxis was initiated pod# 1. He was compliant with physical therapy, his CPM and all precautions. After 2 days he was found to be stable and discharged home with home health care. He was instructed to continue therapy, pursue a high fiber diet and to continue DVT prophylaxis for 15 days. Pt Condition on Discharge: Stable Discharge Disposition: Disch w/ Home Health Serv Discharge Instructions Diet Instructions: As Tolerated, No Restrictions, High Fiber Diet Activities You Can Perform: Weight Bearing as Mo Activities to Avoid: Strenuous Activity Additional Activity Instruc.: Right TKA protocol New Medications: CPM-Continuous Passive Motion Machine (CPM-Continuous Passive Motion Machine) 1 Ea Device 1 EA .ROUTE DIRECTED #1 Ref 0 EA Oxycodone-Acetaminophen (Oxycodone-Acetaminophen) 5-325 mg Tab 1 TAB PO Q4H PRN PAIN LESS THAN 5 ON SCALE #50 TAB Rivaroxaban (Xarelto) 10 Mg Tab 10 MG PO Q24H Prevent Blood Clot #15 TAB Continued Medications: Aspirin (Aspirin) 81 Mg Tabdr 81 MG PO DAILY TAB Atorvastatin (Lipitor) 10 Mg Tab 10 MG PO HS Cholesterol Management #30 Ref 0 TAB Multiple Vitamins W/ Minerals (Centrum Silver) 1 Tab 1 TAB PO DAILY Nutritional Supplement Ref 0 TAB Omeprazole (Omeprazole) 20 Mg Tab 20 MG PO DAILY #30 Ref 0 TAB Prasterone (Dhea) 50 Mg Cap 1 CAP PO DAILY Sertraline (Zoloft) 50 Mg Tab 50 MG PO DAILY #30 Ref 0 TAB Discontinued Medications: Prasugrel (Effient) 10 Mg Tab 10 MG PO DAILY Blood Clot Prevention #30 Ref 0 TAB Leigh Alexnadra August 11, 2016 09:15
--- NOTE | 2016-08-11 09:18 | PD.ORT.PN ---
Subjective Subjective Remarks He continues to do well. Still has right knee pain but states 'its tolerable'. He has no interval complaints overnight except that his drain came out around 5am. This was redressed. No other concerns. No CP or SOB. Ready to d/c home later today. is in [place] and can pick him up around 1:30. Objective Vitals Vital Signs Date Time Temp Pulse Resp B/P Pulse Ox O2 Delivery O2 Flow Rate FiO2 08/11/16 08:20 Room Air 08/11/16 00:18 98.2 79 18 139/67 96 08/10/16 20:06 98.3 88 19 139/73 93 08/10/16 16:00 98.1 82 18 143/69 96 08/10/16 14:34 20 08/10/16 14:00 18 08/10/16 12:00 98.6 71 18 156/70 96 08/10/16 11:06 97 21 08/10/16 10:08 20 08/10/16 10:03 18 I/O 08/10/16 08/10/16 08/10/16 08/11/16 08/11/16 08/11/16 07:00 15:00 23:00 07:00 15:00 23:00 Intake Total 892 ml 1199 ml 1000 ml 480 ml Output Total 865 ml 100 ml 800 ml 610 ml Balance 27 ml 1099 ml 200 ml -130 ml Intake Oral 120 ml 1000 ml 480 ml IV Total 772 ml 1199 ml Output Urine Total 725 ml 650 ml 600 ml Drainage Total 140 ml 100 ml 150 ml 10 ml # Voids 1 # Bowel Movements 0 0 0 Result Diagram: 08/10/16 0604 Imaging Last 24 hours Impressions Knee X-Ray 08/09/16 1413 Signed Impressions: Service Date/Time: Tuesday, August 09, 2016 15:00 - CONCLUSION: Total knee arthroplasty in good position. Rock Colin Jr., MD Procedures Right total knee arthroplasty Objective Remarks Sitting up in bed, NAD VSS RLE Knee dressing c/d/i, drain removed and site dressed (mild SS drainage), mild swelling, no erythema +motor at, +sens, +nvi neg homans Assessment & Plan Ortho Post Op Day #: 2 Problem List: (1) Primary osteoarthritis of right knee Assessment and Plan pod#2 s/p R TKA Ortho stable. Ok to d/c home w [facility] later today after PT. PO pain meds as needed. Ok to redress drain site but do not change anterior incision dressing unless saturated. Xarelto 10mg qd WBAT RLE. TKA protocol. CPM bid as tolerated. F/U in 2 weeks as scheduled. F2F written. Has all dme already. Leigh Alexandra August 11, 2016 09:18
[2016-08-11 12:00] VITALS: BP 159/71; PULSE 77; RESP 18; TEMP 96.5; O2SAT 94
[2016-08-11] MEDS: RIVAROXABAN 10 MG TAB PO SCH (12:31)
== END 2016-08-11 13:07 | disposition home health service (06) | DRG 470 ==
LOC: HSDI 08-09 07:34 → N06B 08-09 18:10
PROVIDERS: ADMIT Orthopaedic Surgery Orthopaedic Surgery of the Spine; ATTEND Orthopaedic Surgery Orthopaedic Surgery of the Spine
PROC: 0QRD0JZ Replacement of Right Patella with Synthetic Substitute, Open Approach (ICD-10-PCS; 2016-08-09)
PROC: 0SRC0J9 Replacement of Right Knee Joint with Synthetic Substitute, Cemented, Open Approach (ICD-10-PCS; principal; 2016-08-09 11:54)
DX: M17.11 Unilateral primary osteoarthritis, right knee (principal); M21.161 Varus deformity, not elsewhere classified, right knee; I25.10 Atherosclerotic heart disease of native coronary artery without angina pectoris; E78.5 Hyperlipidemia, unspecified; K21.9 Gastro-esophageal reflux disease without esophagitis; Z88.0 Allergy status to penicillin; Z95.5 Presence of coronary angioplasty implant and graft; Z96.652 Presence of left artificial knee joint
CPT/HCPCS: 73560; 85014; 85018; 86850; 86900; 86901; 86920; 94150; C1776; C9290; J0690; J1580; J2250; J2270; J2405; J3010; J3370; J7050; J7120; L1830